=== PATIENT | female | born 1990 | race Caucasian/White ===

== ENCOUNTER → 2023-11-29 | Outpatient (CLI) | payer OTHER, SELFPAY ==
[2023-11-29 14:31] LABS: hCG Titer Quant., Serum 2 mIU/mL (1-3)
== END | disposition home or self-care (01) ==
PROVIDERS: Referring Provider Obstetrics & Gynecology; Visit Provider Obstetrics & Gynecology
DX: O26.859 Spotting complicating pregnancy, unspecified trimester (principal); Z3A.00 Weeks of gestation of pregnancy not specified
CPT/HCPCS: 36415; 84702

== ENCOUNTER → 2024-01-06 | Outpatient (CLI) | payer OTHER, SELFPAY ==
[2024-01-06 12:13] LABS: hCG Titer Quant., Serum 27649 mIU/mL (1-3)
== END | disposition home or self-care (01) ==
PROVIDERS: Obstetrics & Gynecology; Referring Provider Advanced Practice Midwife; Visit Provider Advanced Practice Midwife
DX: N91.2 Amenorrhea, unspecified (principal)
CPT/HCPCS: 36415; 84702

== ENCOUNTER → 2024-01-11 | Outpatient (CLI) | payer OTHER, SELFPAY ==
--- NOTE | 2024-01-11 11:03 | US_ITS ---
ACR Level 3 findings have been noted. An addendum which confirms receipt of the report will follow. EXAM: US , TRANSVAGINAL CLINICAL INDICATION: dating TECHNIQUE: Real-time transvaginal obstetrical ultrasound of the maternal pelvis and a first trimester with image documentation. Transvaginal imaging was used for better evaluation of the fetus and adnexa. COMPARISON: No relevant prior studies available. FINDINGS: GESTATION: Single viable IUP. Banquete-rump length: 0.9 cm (7 weeks, 0 days). heart rate: 146 bpm. Heterogenous predominantly hypoechoic perigestational collection measuring 1.3 x 1.9 x 1.2 cm. PLACENTA/AMNIOTIC FLUID: Cannot be adequately evaluated due to the early gestational age. UTERUS/CERVIX: The cervix is closed. No myometrial mass. The uterus measures 9.8 x 5.2 x 4.6 cm. OVARIES: There are 2 simple right ovarian cysts measuring 3.0 and 5.1 cm. No solid mass. The right ovary measures 5.7 x 7.7 x 2.9 cm. The left ovary measures 2.0 x 1.6 x 1.5 cm. FREE FLUID: No free fluid. US/Transvaginal w/Preg US IMPRESSION: 1. Single viable IUP. Apparent subchorionic hematoma. Follow-up as clinically indicated. 7 weeks, 0 days by size. 2. There are 2 simple right ovarian cysts measuring 3.0 and 5.1 cm. SRU Consensus Conference guidelines (Rojo, et. al. Radiology 2019;293:359-371) suggest that these simple cysts are almost certainly benign. No follow-up imaging is necessary. Electronically Signed: Efra Mancilla DO at 20:43 EDT ,
== END | disposition home or self-care (01) ==
PROVIDERS: Referring Provider Obstetrics & Gynecology; Visit Provider Obstetrics & Gynecology
DX: O09.291 Supervision of pregnancy with other poor reproductive or obstetric history, first trimester (principal); N91.2 Amenorrhea, unspecified; Z3A.00 Weeks of gestation of pregnancy not specified
CPT/HCPCS: 76817

== ENCOUNTER → 2024-01-21 | Outpatient (CLI) | payer OTHER, SELFPAY ==
[2024-01-24 20:07] LABS: Chlamydia By Nucleic Acid AMP Positive (Negative); Gonococcus By Nucleic Acid AMP Negative (Negative)
[2024-01-26 15:09] LABS: HPV APTIMA, High Risk Negative (Negative)
== END | disposition home or self-care (01) ==
LOC: LABSPEC 16:52
PROVIDERS: Referring Provider Obstetrics & Gynecology; Visit Provider Obstetrics & Gynecology
DX: Z34.90 Encounter for supervision of normal pregnancy, unspecified, unspecified trimester (principal)
CPT/HCPCS: 87086; 87491; 87591; 87624; 88175; G0145

== ENCOUNTER → 2024-02-03 | Outpatient (CLI) | payer OTHER, SELFPAY ==
[2024-02-03 12:43] LABS: Absolute Lymphocyte Count 1.86 X10^3/uL (0.83-4.51); Absolute Neutrophil Count 6.8 X10^3/uL (2.0-7.7); Basophil# 0.06 X10^3/uL; Basophil% 0.6 % (0-1); Eosinophil# 0.21 X10^3/uL; Eosinophils% 2.2 % (0-5); Hematocrit 40.1 % (37-47); Hemoglobin 13.2 g/dL (12.0-15.0); Lymphocyte # 1.86 X10^3/ul (0.83-4.51); Lymphocyte % 19.6 % (19-41); Mean Corp Hgb Conc 32.9 g/dL (32-36); Mean Corpuscular Hgb 30.5 pg (27.0-32.0); Mean Corpuscular Volume 92.6 fL (81-99); Mean Platelet Vol. 9.8 fl (6.2-12.0); Monocyte# 0.47 X10^3/uL; NRBC Flagged by Analyzer 0 % (0-5); Neutrophil # 6.84 X10^3/uL (2.7-7.7); Neutrophil % 72.2 % (47-70); Platelet Count 317 K/mm3 (150-450); RBC Distribution Width CV 11.9 % (11.6-14.6); RBC Distribution Width SD 40.4 fl (35.1-43.9); Red Blood Count 4.33 M/mm3 (4.2-5.4); White Blood Count 9.5 K/mm3 (4.4-11.0)
[2024-02-03 13:29] LABS: HIV - WCH Non-Reactive (Nonreactive); Hepatitis B Surface Antigen Non-Reactive (Nonreactive); Hepatitis C Antibody Non-Reactive (Nonreactive); Rubella IgG Reactive (Nonreactive); Syphilis Antibodies Non-reactive
== END | disposition home or self-care (01) ==
PROVIDERS: Referring Provider Obstetrics & Gynecology; Visit Provider Obstetrics & Gynecology
DX: Z34.90 Encounter for supervision of normal pregnancy, unspecified, unspecified trimester (principal)
CPT/HCPCS: 36415; 85025; 86703; 86762; 86780; 86803; 86850; 86900; 86901; 87340

== ENCOUNTER → 2024-02-18 | Outpatient (CLI) | payer OTHER, SELFPAY | END | disposition home or self-care (01) | LOC: LABSPEC 14:53 | PROVIDERS: Referring Provider Advanced Practice Midwife; Visit Provider Advanced Practice Midwife | DX: O98.819 Other maternal infectious and parasitic diseases complicating pregnancy, unspecified trimester (principal); A74.9 Chlamydial infection, unspecified; Z3A.00 Weeks of gestation of pregnancy not specified | CPT/HCPCS: 87491; 87591 ==

== ENCOUNTER → 2024-06-09 | Outpatient (CLI) | payer OTHER, SELFPAY ==
[2024-06-09 12:49] LABS: Absolute Lymphocyte Count 2.07 X10^3/uL (0.83-4.51); Absolute Neutrophil Count 7.5 X10^3/uL (2.0-7.7); Basophil# 0.05 X10^3/uL; Basophil% 0.5 % (0-1); Eosinophil# 0.21 X10^3/uL; Hematocrit 36.1 % (37-47); Hemoglobin 11.9 g/dL (12.0-15.0); Lymphocyte # 2.07 X10^3/ul (0.83-4.51); Lymphocyte % 19.6 % (19-41); Mean Corpuscular Hgb 31.6 pg (27.0-32.0); Mean Corpuscular Volume 95.8 fL (81-99); Monocyte# 0.58 X10^3/uL; Monocyte% 5.5 % (0-10); NRBC Flagged by Analyzer 0 % (0-5); Neutrophil % 70.8 % (47-70); Platelet Count 287 K/mm3 (150-450); RBC Distribution Width SD 45.4 fl (35.1-43.9); Red Blood Count 3.77 M/mm3 (4.2-5.4); White Blood Count 10.6 K/mm3 (4.4-11.0)
[2024-06-09 13:03] LABS: Glucose Challenge Gest 1H 50g 128 mg/dL (70-140)
[2024-06-09 13:26] LABS: HIV - WCH Non-Reactive (Nonreactive); Syphilis Antibodies Non-reactive
== END | disposition home or self-care (01) ==
LOC: BWCLAB 08:41
PROVIDERS: Referring Provider Advanced Practice Midwife; Visit Provider Advanced Practice Midwife
DX: O09.90 Supervision of high risk pregnancy, unspecified, unspecified trimester (principal); Z3A.00 Weeks of gestation of pregnancy not specified; Z13.1 Encounter for screening for diabetes mellitus
CPT/HCPCS: 36415; 82950; 85025; 86703; 86780

== ENCOUNTER → 2024-08-04 | Outpatient (CLI) | payer OTHER, SELFPAY ==
[2024-08-04 20:47] LABS: Protein, Urine (Random) < 6.0 mg/dL (0.0-12.0); Protein:Creat Ratio UNABLE TO CALCULATE mg/g CRE (0-200)
== END | disposition home or self-care (01) ==
PROVIDERS: Referring Provider Registered Nurse; Visit Provider Registered Nurse
DX: Z34.93 Encounter for supervision of normal pregnancy, unspecified, third trimester (principal)
CPT/HCPCS: 82570; 84156; 87081

== ENCOUNTER 2024-08-09 19:04 | Inpatient (IN) | payer OTHER, SELFPAY ==
[2024-08-09] VITALS (15 sets, daily range): BP systolic 130–160; BP diastolic 67–94; PULSE 80–108; RESP 16; TEMP 36.1–37.2; O2SAT 98; BMI 29.7
--- NOTE | 2024-08-09 08:01 | US_ITS ---
PROCEDURE: OB LIMITED (NO BIOMETRICS) REASON FOR EXAM: Assessment for presentation. COMPARISON: None. FINDINGS Number: 1 Position: Breech Placental Position: Fundal Placental Abnormalities: None. BIOPHYSICAL ASSESSMENT: Amniotic Fluid Volume: Subjectively normal. Amniotic Fluid Index: 9.3 (8-24 cm normal range) Cardiac Motion: 137 beats per minute (average) Trunk and Limb Motion: Present. US/OB Limited (No Biometrics) IMPRESSION: Breech presentation. Reading Location: [id number]
[2024-08-09] MEDS: Lactated Ringers 1,000 ML 125 ML IV (13:25)
[2024-08-09] MEDS: Terbutaline 1 MG/ML Vial 0.25 MG SC (13:56)
--- NOTE | 2024-08-09 14:54 | US_ITS ---
PROCEDURE: BIOPHYSICAL PROF W/O NON STRES REASON FOR EXAM: well-being. TECHNIQUE: Biophysical profile. COMPARISON: None. FINDINGS: position: Cephalic Amniotic fluid: Within normal limits. Largest fluid pocket measures 4.5 cm. Amniotic fluid index measures 12.4 cm. The placenta is fundal in position. Biophysical profile: Breathing movements: 2 Gross body movements: 2 tone: 2 Amniotic fluid volume: 2 Total score: 8/8 US/Biophysical Prof W/O Non Stres IMPRESSION: Normal biophysical profile. Reading Location: [id number]
[2024-08-09 17:58] LABS: Hematocrit 36.7 % (37-47); Hemoglobin 12.1 g/dL (12.0-15.0); Mean Corpuscular Hgb 30.3 pg (27.0-32.0); Mean Platelet Vol. 11.1 fl (6.2-12.0); Platelet Count 304 K/mm3 (150-450); RBC Distribution Width CV 13.4 % (11.6-14.6); RBC Distribution Width SD 45.6 fl (35.1-43.9); Red Blood Count 3.99 M/mm3 (4.2-5.4); White Blood Count 11.6 K/mm3 (4.4-11.0)
[2024-08-09 18:55] LABS: Protein, Urine (Random) 14.1 mg/dL (0.0-12.0); Protein:Creat Ratio 123 mg/g CRE (0-200)
[2024-08-09 19:08] LABS: AST(SGOT) 55 U/L (<=31); Alanine Aminotransfer ALT/SGPT 72 U/L (<=34); Creatinine, Serum 0.57 mg/dL (0.70-1.20); EST Glomerular Filtration Rate 123 (>60)
[2024-08-09 20:03] LABS: Uric Acid 5.1 mg/dL (2.6-6.0)
[2024-08-09 20:25] LABS: Syphilis Antibodies Nonreactive (Nonreactive)
--- NOTE | 2024-08-09 21:09 | HP.PCM.OB_ITS ---
HPI - General General Date of Admission: 08/09/24 HPI Narrative STEFANIA SANTIAGO, is a 34 F who presents for IOL secondary to severe gestational hypertension. she underwent a successful version today. Maternal Data Information WILY Calculator Estimated Delivery Date Method Current WG Current Estimate 08/30/24 Ultrasound #1 37w 0d PFSH PFS Medical History (Updated 08/09/24 @ 21:[address] 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 [employer] current occupational exposures/hazards: No pets and animals: No history of recent travel: No sexually active: Yes Smoking Status: Never smoker alcohol intake: current alcohol intake frequency: holidays/special occasions only details: not while substance use type: does not use well-balanced diet: daily or most days caffeine: Yes eating out: 1-3 times/week during the past year weight has: remained stable what type of physical activity do you participate in: yoga frequency: 1-2 times per week duration: 15-30 minutes/day katlin/faith: Mandaeism seatbelt use: always do you feel safe at home: Yes additional social history: : Zana Seymour ([employer]) - [employer] History 2 Elective abortions Hx Para 0 Spontaneous abortions 1 Hx # Term Pregnancies Ectopic pregnancies Hx # Pregnancies Multiple births # of living children 0 Past Pregnancies Del. Date Name GA/Weeks Outcome Route Bth Weight Infant Gen Labor Lgth Anesthesia Del Locatn Provider FOB 11/24/23 4 spontaneous Visit Details Expected Delivery Route/Plan Labor Preferences- CB/BF classes: enc. labor support person: Lion labor intervention preferences: would like low intervention. pain management options preferred: [] cut cord/dad catch:plan on cutting the cord : plans. PP control planned: [] discussed possible routes of delivery and associated risks: [] special requests: [] Plans Covid status: declined. Flu vaccine: declined Tdap vaccine: obtained. Rhogam: na LARC form signed: completed. Problem list reviewed and updated with the most current plan of care details and appropriate orders placed. Relevant counseling for the gestational age provided. Continue routine care and follow up unless otherwise noted in visit notes/problem list details OB Flowsheet Initial Weight: 143 lb Date -?-?-?-?-?-?-?-?-?-?-?-?- EGA Weight BP Urine Prot -?-?-?-?-?-?-?-?-?-?-?-?- Glucose FHR FuHt Pres Dilation -?-?-?-?-?-?-?-?-?-?-?-?- Effaced St Visit Note 01/21/24 -?-?-?-?-?-?-?-?-?-?-?-?- 8w 2d 143 lb 6 oz (+6 oz) 130/92 -?-?-?-?-?-?--?-?-?-?-?-?- 158 -?-?-?-?-?-?-?-?-?-?-?-?- JV- CRL consiste nt with prior ultrasound (last week) uncertain about nipt or carrier testing. wants to think about this. small LYN still present. 02/18/24 -?-?-?-?-?-?-?-?-?-?-?-?- 12w 2d 140 lb 8 oz (-2 lb 8 oz) 149/80 130/84 Negative -?-?-?-?-?-?-?-?-?-?-?-?- Negative 160 -?-?-?-?-?-?-?-?-?-?-?-?- KW- work in for SM. no vb/cramping. gcc recollected today. anatomy US ordered 03/17/24 -?-?-?-?-?-?--?-?-?-?-?-?- 16w 2d 141 lb 2 oz (-1 lb 14 oz) 127/86 Negative -?-?-?-?-?-?-?-?-?-?-?-?- Negative 145 -?-?-?-?-?-?-?-?-?-?-?-?- JV- gc/ct was ne gative in the urine JV- gc/ct was negative in th e urine. no complaints. low risk nipt Girl! 04/13/24 -?-?-?-?-?-?-?-?-?-?-?-?- 20w 1d 147 lb (+4 lb) 126/75 Negative -?-?-?-?-?-?-?-?-?-?-?-?- Negative 150 -?-?-?-?-?-?-?-?-?-?-?-?- SM- no vb lof go od fm no regular ctx 05/11/24 -?-?-?-?-?-?-?-?-?-?-?-?- 24w 1d 153 lb (+10 lb) 131/72 Negative -?-?-?-?-?-?-?-?-?-?-?-?- Negative 145 24 -?-?-?-?-?-?-?-?-?-?-?-?- KW- no vb/lof/ct x. good fm 28 week labs discussed. 2024 CBE classes given. declines flu. LARC done. 06/09/24 -?-?-?-?-?-?-?-?-?-?-?-?- 28w 2d 156 lb 8 oz (+13 lb 8 oz) 127/72 Negative -?-?-?-?-?-?-?-?-?-?-?-?- Negative 150 27 -?-?-?-?-?-?-?-?-?-?-?-?- KW- no vb/lof/ct x. good fm. glucose pending. tdap done. 06/23/24 -?-?-?-?-?-?-?-?-?-?-?-?- 30w 2d 160 lb (+17 lb) 134/82 Negative -?-?-?-?-?-?-?-?--?-?-?-?- Negative 135 30 -?-?-?-?-?-?-?-?-?-?-?-?- LC- no vb/ctx/lo f. good fm. no concerns. 07/07/24 -?-?-?-?-?-?-?-?-?-?-?-?- 32w 2d 165 lb (+22 lb) 137/80 Negative -?-?-?-?-?-?-?-?-?-?-?-?- Negative 160 32 -?-?-?-?-?-?-?-?-?-?-?-?- JV- no lof, vagi nal bleeding, or dec fm. still deciding on a name. 07/20/24 -?-?-?-?-?-?-?-?-?-?-?-?- 34w 1d 166 lb 8 oz (+23 lb 8 oz) 136/88 Negative -?-?-?-?--?-?-?-?-?-?-?-?- Negative 136 33 Transverse -?-?-?-?-?-?-?-?-?-?-?-?- JV- no lof, vagi nal bleeding, or dec fm. no complaints today. uncertain on position. suspect transverse plan bedside scan next visit. 08/04/24 -?-?-?-?-?-?-?-?-?-?-?-?- 36w 2d 175 lb 6 oz (+32 lb 6 oz) 135/90 138/86 Negative -?-?-?-?-?-?-?-?-?-?-?-?- Negative 140 36 Breech -?-?-?-?-?-?-?-?-?-?-?-?- LC- bedside us s howing breech. version set up for next week. formal us for gali. pih labs outpt. NST FHR Rate Baby A Baseline: 130 Variability:: Moderate Accelerations:: 15 x 15 Decelerations:: Variable (isolated) NST Reactive:: Yes FHR Category:: Category I Uterine Activity:: irregular ROS Constitutional Constitutional: Reports systems reviewed and no addt'l complaints, except as documented Eyes Eyes: Denies change in vision ENT HEENT: Reports systems reviewed and no addt'l complaints, except as documented; Denies headache(s) Cardiovascular Cardiovascular: Reports systems reviewed and no addt'l complaints, except as documented; Denies chest pain or dyspnea Respiratory/Chest Respiratory/Chest: Reports systems reviewed and no addt'l complaints, except as documented Gastrointestinal Gastrointestinal: Reports systems reviewed and no addt'l complaints, except as documented; Denies abdominal pain Genitourinary Genitourinary: Reports systems reviewed and no addt'l complaints, except as documented, contractions Details: present (irregular) and movement Details: present; Denies dysuria or genital lesions Musculoskeletal Musculoskeletal: Reports systems reviewed and no addt'l complaints, except as documented Neurologic Neurologic: Reports systems reviewed and no addt'l complaints, except as documented Endocrine Endocrinology: Reports systems reviewed and no addt'l complaints, except as documented Vital Signs Vital Signs Vital Signs: 08/09/24 13:16 08/09/24 13:16 08/09/24 13:16 Temperature 97.0 F L Temperature Source Temporal Pulse Rate Respiratory Rate 16 Blood Pressure BP Systolic BP Diastolic Pulse Ox 08/09/24 13:20 08/09/24 13:20 08/09/24 16:52 Temperature Temperature Source Pulse Rate 80 Respiratory Rate Blood Pressure 130/71 H 160/83 H BP Systolic 130 160 BP Diastolic 71 83 Pulse Ox 08/09/24 16:52 08/09/24 16:53 08/09/24 16:53 Temperature Temperature Source Pulse Rate 84 84 Respiratory Rate Blood Pressure 155/82 H BP Systolic 155 BP Diastolic 82 Pulse Ox 08/09/24 17:09 08/09/24 17:09 08/09/24 18:11 Temperature Temperature Source Pulse Rate 98 Respiratory Rate Blood Pressure 148/80 H 148/80 H BP Systolic 148 148 BP Diastolic 80 80 Pulse Ox 08/09/24 18:11 08/09/24 18:25 08/09/24 18:25 Temperature Temperature Source Pulse Rate 86 87 Respiratory Rate Blood Pressure 145/82 H BP Systolic 145 BP Diastolic 82 Pulse Ox 08/09/24 18:39 08/09/24 18:39 08/09/24 18:54 Temperature Temperature Source Pulse Rate 90 Respiratory Rate Blood Pressure 149/94 H 150/84 H BP Systolic 149 150 BP Diastolic 94 84 Pulse Ox 08/09/24 18:54 08/09/24 18:57 08/09/24 18:57 Temperature Temperature Source Pulse Rate 88 96 Respiratory Rate Blood Pressure 149/76 H BP Systolic 149 BP Diastolic 76 Pulse Ox 08/09/24 19:09 08/09/24 19:09 08/09/24 20:24 Temperature Temperature Source Temporal Pulse Rate 108 H Respiratory Rate Blood Pressure 145/67 H BP Systolic 145 BP Diastolic 67 Pulse Ox 08/09/24 20:24 08/09/24 20:24 08/09/24 20:24 Temperature Temperature Source Pulse Rate 107 H Respiratory Rate 16 Blood Pressure 138/84 H BP Systolic 138 BP Diastolic 84 Pulse Ox 08/09/24 20:24 08/09/24 20:24 Temperature 98.3 F Temperature Source Pulse Rate Respiratory Rate Blood Pressure BP Systolic BP Diastolic Pulse Ox 98 Weight Weight: 173 lb 8.061 oz Body Mass Index (BMI) 29.7 Physical Exam Const alert, oriented x3, no apparent distress and healthy appearing HEENT normocephalic and moist oral mucous membranes Head and Scalp: atraumatic Neck full ROM, no lymphadenopathy, supple and thyroid normal General: trachea midline Lymph Lymphatic: no lymphadenopathy noted Chest inspection of chest normal Resp normal respiratory effort Cardio regular rate GI soft to palpation and non-tender GI Narrative: gravid Inspection: gravid external exam normal Manual OB Exam: estimated gestational size appropriate, presentation cephalic, dilated, effaced and station Extremity normal to inspection General Extremity: Negative for edema Skin no rashes or lesions noted Neuro no focal motor deficits and deep tendon reflexes 2+ bilaterally Motor Exam: strength 5/5 throughout and clonus absent Psych mental status grossly normal Labs Labs Labs: Blood Type O POSITIVE Antibody Screen NEGATIVE Hct 36.7 % (37-47) L Hgb 12.1 g/dL (12.0-15.0) Obstetrics Ultrasound Syphilis Total Ab Nonreactive (Nonreactive) Rubella IgG Antibody Reactive (Nonreactive) Hep Bs Antigen Non-Reactive (Nonreactive) Hepatitis C Antibody Non-Reactive (Nonreactive) Chlamydia DNA (MEHUL) Positive (Negative) H N.gonorrhoeae DNA (MEHUL) Negative (Negative) HIV 1&2 Antibody Non-Reactive (Nonreactive) Glucose 1 Hr 50 gm 128 mg/dL (70-140) Assessment & Plan (1) Gestational HTN: (2) Chlamydia infection affecting : COMMENT: retest at 2nd visit (negative) and at 36 weeks (3) Supervision of high-risk : COMMENT: PRR,, WILY 08/30/24 girl : Lion (4) : QUALIFIERS: Weeks of gestation: 36 weeks Qualified Code(s): Z3A.36 - 36 weeks gestation of COMMENT: GBS NEG. Discussed genetic/carrier testing. low risk NIPT, afp and carrier screen declined. normal growth, consistent WILY and normal CL PLAN: Plan Patient presents IOL, plan management for with cytotec then pitocin/AROM. Pain management: plans epidural. GBS negative. Management of any complications: follow serial labs, plan magnesium sulfate as needed I have reviewed the [facility] and made any clinically relevant updates.
--- NOTE | 2024-08-09 21:13 | PCM.OPRPT ---
Problems Associated Problem List Diagnoses (1) Breech presentation: Procedures Urinary/Genital 52xxx-59xxx: 83913 ECV Operative Report (Standard) Operative Information Date of Procedure: 08/09/24 Pre-Operative Diagnosis: breech Post-Operative Diagnosis: vertex Surgery/Procedure Performed: external cephalic version motor vehicles inspector: No Type of Anesthesia: None Procedure Start Time: 14:00 Procedure Stop Time: 14:15 Select all DRAINS/GRAFTS/IMPLANTS that apply: None Estimated Blood Loss: 0 Specimen collected: No Description of surgery: The fetus was found to be in breech presentation informed by ultrasound. Patient had an IV in place, normal amniotic fluid, no contraindications to a vaginal delivery, and reactive nonstress test prior to the procedure. Patient was placed in the dorsal supine position after the terbutaline was given. Ultrasound gel was applied to the patient's abdomen and using constant upward pressure to elevate the buttocks out of the pelvic inlet constant pressure was applied to the buttocks and to the area behind the back of the neck and head to encourage a forward roll of the fetus. Constant pressure was applied and slowly the was converted to a vertex presentation with a forward roll. Bedside ultrasound was used to confirm vertex presentation and reassuring heart rate. Patient was replaced on the NST and monitored to assure reassuring status. No complications. Surgical Findings: none Complications Complications: No
[2024-08-09] MEDS: Lactated Ringers 1,000 ML 50 ML IV (21:36)
[2024-08-09] MEDS: miSOPROStol 25 MCG TABLET VAGINAL (22:07)
[2024-08-10] VITALS (28 sets, daily range): BP systolic 101–167; BP diastolic 72–103; PULSE 74–114; RESP 10–20; TEMP 36.1–37.1; O2SAT 95–100
[2024-08-10 00:23] LABS: Absolute Lymphocyte Count 2.16 X10^3/uL (0.83-4.51); Absolute Neutrophil Count 8.1 X10^3/uL (2.0-7.7); Basophil# 0.06 X10^3/uL; Basophil% 0.5 % (0-1); Eosinophil# 0.12 X10^3/uL; Hematocrit 30.2 % (37-47); Hemoglobin 10.1 g/dL (12.0-15.0); Lymphocyte # 2.16 X10^3/ul (0.83-4.51); Lymphocyte % 18.8 % (19-41); Mean Corp Hgb Conc 33.4 g/dL (32-36); Mean Corpuscular Hgb 30.1 pg (27.0-32.0); Mean Corpuscular Volume 90.1 fL (81-99); Mean Platelet Vol. 10.5 fl (6.2-12.0); Monocyte# 0.91 X10^3/uL; Monocyte% 7.9 % (0-10); NRBC Flagged by Analyzer 0 % (0-5); Neutrophil % 70.3 % (47-70); Platelet Count 268 K/mm3 (150-450); RBC Distribution Width CV 13.5 % (11.6-14.6); RBC Distribution Width SD 44.4 fl (35.1-43.9); Red Blood Count 3.35 M/mm3 (4.2-5.4); White Blood Count 11.5 K/mm3 (4.4-11.0)
[2024-08-10 00:51] LABS: ALB/GLOB Ratio 1.2 RATIO (0.9-2.4); AST(SGOT) 51 U/L (<=31); Alanine Aminotransfer ALT/SGPT 66 U/L (<=34); Albumin, Serum 3.5 g/dL (3.5-5.0); Alkaline Phosphatase 114 U/L (35-104); Anion Gap 14 (5-15); BUN 7 mg/dL (4-19); BUN/Creat Ratio 12.4 RATIO (10-20); Calcium,Total 8.8 mg/dL (7.6-11.0); Carbon Dioxide 17.8 mmol/L (21.0-32.0); Chloride 105 mmol/L (98-108); Creatinine, Serum 0.57 mg/dL (0.70-1.20); EST Glomerular Filtration Rate 123 (>60); Globulin 2.9 g/dL (2.2-4.2); Glucose 83 mg/dL (70-99); Potassium 3.7 mmol/L (3.3-5.1); Protein, Total 6.3 g/dL (5.9-8.4); Sodium Level 137 mmol/L (133-145); Total Bilirubin 0.23 mg/dL (0.00-1.30)
[2024-08-10] MEDS: miSOPROStol 25 MCG TABLET VAGINAL ×2 (02:58→07:43)
[2024-08-10 08:21] LABS: Absolute Lymphocyte Count 2.09 X10^3/uL (0.83-4.51); Absolute Neutrophil Count 8.8 X10^3/uL (2.0-7.7); Basophil# 0.06 X10^3/uL; Basophil% 0.5 % (0-1); Eosinophil# 0.22 X10^3/uL; Eosinophils% 1.8 % (0-5); Hematocrit 31.4 % (37-47); Hemoglobin 10.4 g/dL (12.0-15.0); Lymphocyte # 2.09 X10^3/ul (0.83-4.51); Mean Corp Hgb Conc 33.1 g/dL (32-36); Mean Corpuscular Hgb 29.8 pg (27.0-32.0); Mean Platelet Vol. 10.6 fl (6.2-12.0); Monocyte% 8.1 % (0-10); NRBC Flagged by Analyzer 0 % (0-5); Neutrophil # 8.81 X10^3/uL (2.7-7.7); Neutrophil % 71.7 % (47-70); Platelet Count 267 K/mm3 (150-450); RBC Distribution Width CV 13.6 % (11.6-14.6); Red Blood Count 3.49 M/mm3 (4.2-5.4); White Blood Count 12.3 K/mm3 (4.4-11.0)
[2024-08-10] MEDS: Lactated Ringers 1,000 ML 50 ML IV (08:52)
[2024-08-10 09:08] LABS: ALB/GLOB Ratio 1.2 RATIO (0.9-2.4); AST(SGOT) 48 U/L (<=31); Alanine Aminotransfer ALT/SGPT 64 U/L (<=34); Albumin, Serum 3.3 g/dL (3.5-5.0); Alkaline Phosphatase 113 U/L (35-104); Anion Gap 13 (5-15); BUN 7 mg/dL (4-19); BUN/Creat Ratio 12.6 RATIO (10-20); Calcium,Total 8.7 mg/dL (7.6-11.0); Carbon Dioxide 17.9 mmol/L (21.0-32.0); Chloride 106 mmol/L (98-108); Creatinine, Serum 0.59 mg/dL (0.70-1.20); EST Glomerular Filtration Rate 122 (>60); Estimated Creatinine Clearance 137.67 ml/min (50-250); Globulin 2.8 g/dL (2.2-4.2); Glucose 76 mg/dL (70-99); Potassium 3.9 mmol/L (3.3-5.1); Protein, Total 6.2 g/dL (5.9-8.4); Sodium Level 137 mmol/L (133-145); Total Bilirubin 0.24 mg/dL (0.00-1.30)
--- NOTE | 2024-08-10 11:02 | PCM.PN.BLA ---
Progress Note Cat I tracing, cytotec continue plan pit and fb after this dose. liver enzymes and bps stable. continue to monitor
[2024-08-10] MEDS: Oxytocin 15 Units/NS 250ml 15 UNITS/250 ML IV.SOLN 2 UNITS IV (12:55)
[2024-08-10] MEDS: 0.9% Saline Lock 10 ML Syringe IV (13:03)
--- NOTE | 2024-08-10 13:07 | PCM.PN.OB ---
Subjective Subjective patient is sitting up in bed. She consents to a james balloon placement. current tracing: FHT: Moderate variability reactive no decelerations category I tracing [place]: irregualr, infrequent Contractions cx: 1/40/-3, soft, posterior. james inserted in the cervix and inflated with 50 cc ns. A/P: patient tolerated the insertion well. start pitocin now. pain management discussed. Objective Data Objective Data Vital Signs: Vital Signs Temp Pulse Resp BP Pulse Ox 98.3 F 80 16 166/94 H 98 08/10/24 09:17 08/10/24 13:06 08/10/24 06:04 08/10/24 13:06 08/10/24 09:18 Weight: 173 lb 8.061 oz Body Mass Index (BMI) 29.7 Intake & Output: Intake and Output for Last 24 Hours 08/08/24 08/09/24 08/10/24 23:59 23:59 23:59 Intake Total 1000 / 1000 1000.0 / 1000.0 Balance 1000 / 1000 1000.0 / 1000.0 Lab / Micro Data 08/10/24 08:03 08/10/24 08:03 Labs: Laboratory Results - last 24 hr 08/09/24 13:25: WBC 11.6 H, RBC 3.99 L, Hgb 12.1, Hct 36.7 L, MCV 92.0, MCH 30.3, MCHC 33.0, RDW Std Deviation 45.6 H, RDW Coeff of Morris 13.4, Plt Count 304, MPV 11.1, Syphilis Total Ab Nonreactive, Blood Type O POSITIVE, Antibody Screen NEGATIVE 08/09/24 17:30: Creatinine 0.57 L, Estim Creat Clear Calc 142.50, Est GFR (MDRD) Non-Af 123, Uric Acid 5.1, AST 55 H, ALT 72 H 08/09/24 17:35: U Random Total Protein 14.1 H, Urine Creatinine 115.00, Protein/Creatinin Ratio 123 08/10/24 00:07: WBC 11.5 H, RBC 3.35 L, Hgb 10.1 L, Hct 30.2 L, MCV 90.1, MCH 30.1, MCHC 33.4, RDW Std Deviation 44.4 H, RDW Coeff of Morris 13.5, Plt Count 268, MPV 10.5, Immature Gran % (Auto) 1.500 H, Neut % (Auto) 70.3 H, Lymph % (Auto) 18.8 L, [place] % (Auto) 7.9, Eos % (Auto) 1.0, Baso % (Auto) 0.5, Absolute Neuts (auto) 8.1 H, Absolute Lymphs (auto) 2.16, Nucleated RBC % 0, Sodium 137, Potassium 3.7, Chloride 105, Carbon Dioxide 17.8 L, Anion Gap 14, BUN 7, Creatinine 0.57 L, Estim Creat Clear Calc 142.50, Est GFR (MDRD) Non-Af 123, BUN/Creatinine Ratio 12.4, Glucose 83, Calcium 8.8, Total Bilirubin 0.23, AST 51 H, ALT 66 H, Alkaline Phosphatase 114 H, Total Protein 6.3, Albumin 3.5, Globulin 2.9, Albumin/Globulin Ratio 1.2 08/10/24 08:03: WBC 12.3 H, RBC 3.49 L, Hgb 10.4 L, Hct 31.4 L, MCV 90.0, MCH 29.8, MCHC 33.1, RDW Std Deviation 44.0 H, RDW Coeff of [place] 13.6, Plt Count 267, MPV 10.6, Immature Gran % (Auto) 0.900, Neut % (Auto) 71.7 H, Lymph % (Auto) 17.0 L, [place] % (Auto) 8.1, Eos % (Auto) 1.8, Baso % (Auto) 0.5, Absolute Neuts (auto) 8.8 H, Absolute Lymphs (auto) 2.09, Nucleated RBC % 0, Sodium 137, Potassium 3.9, Chloride 106, Carbon Dioxide 17.9 L, Anion Gap 13, BUN 7, Creatinine 0.59 L, Estim Creat Clear Calc 137.67, Est GFR (MDRD) Non-Af 122, BUN/Creatinine Ratio 12.6, Glucose 76, Calcium 8.7, Total Bilirubin 0.24, AST 48 H, ALT 64 H, Alkaline Phosphatase 113 H, Total Protein 6.2, Albumin 3.3 L, Globulin 2.8, Albumin/Globulin Ratio 1.2 Radiography Diagnostic Testing: Radiology Impression Biophysical Profile Ultrasound 08/09/24 14:54 IMPRESSION: Normal biophysical profile. Reading Location: [id number]
[2024-08-10] MEDS: fentaNYL 100 MCG/2 ML Ampul IV (14:10)
[2024-08-10] MEDS: LACTATED RINGERS 500 ML 999 ML IV (15:58)
[2024-08-10] MEDS: Cefazolin 2 GM in Syringe IV (16:55)
[2024-08-10] MEDS: Cefazolin 2 GM in 0.9% Normal Saline (100mL Bag) 100 ML IV (16:55)
[2024-08-10] MEDS: Carboprost Tromethamine 250 MCG/ML Ampul IM (16:56)
[2024-08-10] MEDS: Azithromycin 500 MG in 0.9% Normal Saline (250mL Bag) 250 ML 255 MG IV (17:00)
--- NOTE | 2024-08-10 17:46 | PCM.PN.BLA ---
Progress Note fb out several hours ago and patient SROMed clear fluid, 2 variable decels noted so patient checked and decision for stat section due to cord prolapse identified
--- NOTE | 2024-08-10 17:47 | OP.PCM_ITS ---
Assessment & Plan (1) Umbilical cord prolapse in labor and delivery: (2) : QUALIFIERS: Weeks of gestation: 36 weeks Qualified Code(s): Z3A.36 - 36 weeks gestation of COMMENT: GBS NEG. Discussed genetic/carrier testing. low risk NIPT, afp and carrier screen declined. normal growth, consistent WILY and normal CL (3) Supervision of high-risk : COMMENT: PRR,, WILY 08/30/24 girl : Lion (4) Chlamydia infection affecting : COMMENT: retest at 2nd visit (negative) and at 36 weeks (5) Gestational HTN: COMMENT: no proteinuria but elevated liver enzymes noted (6) delivery delivered: COMMENT: LTCS SM 37 cord prolapse IOL severe GHTN elevated liver enzymes girl Isela Maternal Data Information WILY Calculator Estimated Delivery Date Method Current WG Current Estimate 08/30/24 Ultrasound #1 37w 1d Operative Report (OB) Cecarean Details Procedure Type: low transverse Date of Procedure: 08/10/24 Procedure Start Time: 16:50 Procedure Stop Time: 17:19 Pre-Operative Diagnosis: Other Other Pre-Operative diagnosis: see a/p comments Post-Operative Diagnosis: Same as Pre-operative diagnosis Type of Anesthesia: General Special Medications: none Antibiotic Given: Ancef 2 grams IV x1 Drain: De [place] Cruz to straight drain Estimated Blood Loss: 500 Fluids Replaced: crystalloid Findings Description of surgery: patient induced for severe GHTN with elevated liver enzymes and elevated bps. she was a successful ECV the day prior with ultrasound confirming vertex with nothing seen on ultrasound under the head after version. she underwent cytotec and then pit and fb IOL. she has spontaneous ROM and had 2 variable decels so she was checked and noted to have a cord prolapse therefore decision was made for immediate primary . ptaient take to the back, De La Cruz catheter was placed. The patient was placed in the dorsal supine position with leftward tilt. Patient was prepped and draped with splash betadine prep, placed under general anesthesia. Pfannenstiel skin incision was made with the scalpel and carried through to the underlying layer of fascia with the scalpel. Fascia was nicked in the midline and the incision extended laterally. The peritoneum was entered digitally. The incision was stretched and a low transverse uterine incision was made with the scalpel. The infant's head was delivered atraumatically followed by the anterior and posterior shoulders without complication the rest of the delivered. The cord was clamped and cut and the infant was handed off to awaiting nurse. The placenta was delivered spontaneously immediately following and was noted to be intact and have a three- vessel cord. The uterus was exteriorized cleared of all clots and debris, and the incision was closed in a single layer closure using #1 Monocryl. hemabate given for uterine atony. The ovaries and fallopian tubes were noted to be within normal limits. The uterus was returned to the maternal abdomen and gutters were cleared of all clots and debris. The peritoneum was closed with 3-0 Monocryl in a running fashion. Fascia was closed with 0 PDS in a running fashion. Subcutaneous tissue was copiously irrigated and the skin was closed with 3-0 Monocryl in a subcuticular fashion. Mepilex dressing was applied without complication. Patient was taken to recovery in stable condition. It was discussed with the patient that based on the clinical information obtained during this encounter, combined with her history, at this time I would recommend vaginal or cesareans for future deliveries if further pregnancies are desired. Surgical findings: nl uterus tubes ovaries funic presentation Presentation: Vertex Amniotic Membrane Rupture Type: Spontaneous Amniotic Fluid Description: Clear Placental Delivery Description: Spontaneous Specimen collected: Yes Description of specimen(s) removed: placenta and baby Cord Vessel Description: 3 Vessels (1 minute): 8 (5 minute): 9 Delayed Cord Clamping: No Ornament Stapler project production engineer: Yes Linux Network Systems Administrator: Yecenia Schmitz Tasks completed by blacksmith assistant: Opening & closing, Retracting and Other (assisting in delivery of the ) Additional physician office assistant?: No Complications Complications: No Admit VTE Documentation VTE Present on Admission: No VTE Mechan Device Prophylaxis: SCD's Procedures Urinary/Genital 52xxx-59xxx: [address] [facility]
--- NOTE | 2024-08-10 17:57 | DCINST_ITS ---
Discharge Instructions Diet Discharge Diet: No restrictions DC O2, CPAP, BIPAP needs Home O2 Discharge instructions: No Dressing / Incision Discharge Activity: May Not Drive (for 2 weeks or while taking narcotic pain medications.), May Shower and May Take a Tub Bath (in 7 days) May shower in (days): 0 May resume sexual activity in: 4-6 weeks Weight Bearing Status: Full weight bearing Lifting Restrictions: 20 pounds Dressing / Incision Call your doctor if your incision/area has: Continuous Slow Oozing, Sudden Increased Bleeding, Increased Pain/ Swelling, Increased Redness and Foul Smelling Discharge Call your doctor if you observe: Fever of 101 or Higher and Using more than 1 pad per hour (for 2 hours) Suture Line Care: Avoid Pulling/Pushing and Avoid Pinching/Bending Cleanse incision/area with: Soap & Water and Keep Dressing Clean & Dry Follow Up Care Please Follow Up With: Tatiana Michel MD When: Call [phone] to make an appointment for an incision check in 1-2 weeks. Test Results: Test results from this visit will be discussed in further detail at your follow- up appointment, if applicable. Discharge Plan Admission Admit Date/Time: 08/09/24 19:04 Attending Provider: Tatiana Michel Primary Care Provider: Care Physician,No Primary Instructions Patient Instructions: Kick Counts, ED False Labor, OB Triage: Return to Hospital or Notify Physician if you Experience: Discharge Orders/Prescriptions Prescriptions: New oxycodone-acetaminophen [Percocet] 5-325 mg tablet 1 tab PO Q4H PRN (Reason: pain) 7 Days Qty: 20 0RF naproxen 500 mg tablet 500 mg PO BID PRN PRN (Reason: Pain) Qty: 30 1RF No Action PNV cmb#95-ferrous fumarate-FA [] 28 mg iron- 800 mcg tablet 1 tab PO DAILY Referrals / Follow Up: Care Physician,No Primary [Primary Care Provider] - Disposition Disposition (needs filled in before D/C Order can be placed): Home, Self Care
[2024-08-10] MEDS: Oxytocin 15 Units/NS 250ml 15 UNITS/250 ML IV.SOLN 83 UNITS IV (18:05)
[2024-08-10] MEDS: Acetaminophen 500 MG Tablet 1000 MG PO (18:16)
[2024-08-10] MEDS: Ketorolac 30 MG/ML Syringe IV (18:16)
--- NOTE | 2024-08-10 18:27 | NURSING ---
Dr. Michel notified of BP 138/103, (repeated x3 after cuff reapplied to arm and arm propped onto pillow). Not concerned at this time as patient had narrow pulse pressure overnight. If this continues may consider obtaining manual BP.
[2024-08-10] MEDS: Loperamide 2 MG Capsule 4 MG PO (18:55)
[2024-08-11] VITALS (11 sets, daily range): BP systolic 115–134; BP diastolic 69–87; PULSE 79–99; RESP 16–22; TEMP 36.4–37.2; O2SAT 97–100
[2024-08-11] MEDS: Acetaminophen 500 MG Tablet 1000 MG PO ×4 (00:08→18:09)
[2024-08-11] MEDS: 0.9% Saline Lock 10 ML Syringe IV ×2 (00:09→06:02)
[2024-08-11] MEDS: Ketorolac 30 MG/ML Syringe IV ×3 (00:09→14:45)
[2024-08-11] MEDS: Cefazolin 1 GM/50 ML BAG IV ×2 (01:39→16:38)
[2024-08-11 06:22] LABS: Hematocrit 19.3 % (37-47); Hemoglobin 6.3 g/dL (12.0-15.0); Mean Corp Hgb Conc 32.6 g/dL (32-36); Mean Corpuscular Hgb 29.7 pg (27.0-32.0); Mean Platelet Vol. 9.7 fl (6.2-12.0); Platelet Count 173 K/mm3 (150-450); RBC Distribution Width CV 13.9 % (11.6-14.6); RBC Distribution Width SD 45.2 fl (35.1-43.9); Red Blood Count 2.12 M/mm3 (4.2-5.4); White Blood Count 20.9 K/mm3 (4.4-11.0)
--- NOTE | 2024-08-11 07:43 | PCM.PN.OB ---
Subjective Subjective patient evaluated due to significant drop in hemoglobin since last night. vitals signs stable, initially had some dizziness but since last night she has been ambulating to the bathroom without difficulty. she initially had atony around delivery but responded well to uterotonics. she has been asympomatic overnight , vitals stable. some right shoulder pain. Objective Data Objective Data Vital Signs: Vital Signs Temp Pulse Resp BP Pulse Ox O2 Del Method 99.0 F 99 22 H 126/77 H 97 Room Air 08/11/24 07:26 08/11/24 07:26 08/11/24 07:26 08/11/24 07:26 08/11/24 04:54 08/11/24 07:26 Oxygen Delivery Method Room Air Weight: 173 lb 8.061 oz Body Mass Index (BMI) 29.7 Intake & Output: Intake and Output for Last 24 Hours 08/09/24 08/10/24 08/11/24 23:59 23:59 23:59 Intake Total 1000 / 1000 2764.17 / 2764.17 50 / 50 Output Total 1200 / 1200 300 / 300 Balance 1000 / 1000 1564.17 / 1564.17 -250 / -250 Lab / Micro Data 08/11/24 06:10 08/10/24 08:03 Labs: Laboratory Results - last 24 hr 08/10/24 08:03: WBC 12.3 H, RBC 3.49 L, Hgb 10.4 L, Hct 31.4 L, MCV 90.0, MCH 29.8, MCHC 33.1, RDW Std Deviation 44.0 H, RDW Coeff of Morris 13.6, Plt Count 267, MPV 10.6, Immature Gran % (Auto) 0.900, Neut % (Auto) 71.7 H, Lymph % (Auto) 17.0 L, [place] % (Auto) 8.1, Eos % (Auto) 1.8, Baso % (Auto) 0.5, Absolute Neuts (auto) 8.8 H, Absolute Lymphs (auto) 2.09, Nucleated RBC % 0, Sodium 137, Potassium 3.9, Chloride 106, Carbon Dioxide 17.9 L, Anion Gap 13, BUN 7, Creatinine 0.59 L, Estim Creat Clear Calc 137.67, Est GFR (MDRD) Non-Af 122, BUN/Creatinine Ratio 12.6, Glucose 76, Calcium 8.7, Total Bilirubin 0.24, AST 48 H, ALT 64 H, Alkaline Phosphatase 113 H, Total Protein 6.2, Albumin 3.3 L, Globulin 2.8, Albumin/Globulin Ratio 1.2 08/11/24 06:10: WBC 20.9 H, RBC 2.12 L, Hgb 6.3 L, Hct 19.3 L, MCV 91.0, MCH 29.7, MCHC 32.6, RDW Std Deviation 45.2 H, RDW Coeff of [place] 13.9, Plt Count 173, MPV 9.7 Physical Exam Const General Appearance: cooperative and comfortable; Negative for in distress Cardio Rate: regular rate GI soft to palpation and non-distended GI Narrative: incision intact no masses fundus firm below U Assessment & Plan (1) Anemia: (2) delivery delivered: COMMENT: LTCS SM 37 cord prolapse IOL severe GHTN elevated liver enzymes girl Isela PLAN: Plan stat ct scan ordered and 2 units blood to replace KINGA. ct shows no hematomas or active areas of bleeding. will recheck cbc and fibrinogen 2 hours post transfusion
[2024-08-11 07:46] LABS: Hematocrit 18.8 % (37-47); Hemoglobin 6.1 g/dL (12.0-15.0); Mean Corp Hgb Conc 32.4 g/dL (32-36); Mean Corpuscular Hgb 29.6 pg (27.0-32.0); Mean Corpuscular Volume 91.3 fL (81-99); Mean Platelet Vol. 9.8 fl (6.2-12.0); Platelet Count 173 K/mm3 (150-450); RBC Distribution Width CV 13.9 % (11.6-14.6); RBC Distribution Width SD 45.7 fl (35.1-43.9); Red Blood Count 2.06 M/mm3 (4.2-5.4); White Blood Count 21.4 K/mm3 (4.4-11.0)
[2024-08-11 08:01] LABS: International Normalized Ratio 1.2; Partial Thromboplast Time 28.9 Seconds (24.1-36.2); Prothrombin Time (Protime)PT. 15.9 SECONDS (11.7-14.9)
[2024-08-11 08:05] LABS: Fibrinogen 202 mg/dl (203-444)
--- NOTE | 2024-08-11 08:07 | CT_ITS ---
PROCEDURE: COMPUTED TOMOGRAPHY OF THE ABDOMEN AND PELVIS WITH CONTRAST REASON FOR EXAM: PATIENT HAD A YESTERDAY. HEMOGLOBIN DECREASED FOLLOWING SURGERY. TECHNIQUE: Contiguous axial scans of 3.75 mm slice thicknesses. Sagittal and coronal reconstruction images were obtained. One or more dose reduction techniques were used (e.g., automated exposure control, adjustment of mA and/or kv according to patient size, use of iterative reconstruction technique). IV CONTRAST: Isovue-300, 100 mL. COMPARISON: None. FINDINGS: Lung bases: Clear Liver: Normal in size and attenuation. A small area of round hypoattenuation in the left hepatic lobe measuring 0.5 cm, axial image 17. Irregular-shaped mildly enhancing area of hypoattenuation in the posterior right hepatic lobe measuring 2.2 x 1.9 cm, axial image 19. An area of hypoattenuation in the right hepatic lobe measuring 1.2 x 1.1 cm, axial image 29. Gallbladder: Unremarkable. Spleen: Unremarkable. Pancreas: Unremarkable. Adrenals: Unremarkable. Kidneys: Unremarkable. Bladder: Small air-fluid level in the urinary bladder. Reproductive Organs: Enlarged post gravid uterus, central and to the right and position. No signs of active hemorrhage. Prominent enhanced vessels in the adnexal regions. Bowel: Large amount of air in the colon and small bowel. Appendix: Normal. Lymph nodes: No suspicious lymph node enlargement. Vasculature: Major vascular structures are unremarkable. Peritoneum / Retroperitoneum: Small amount of fluid in the right subhepatic space. Abdominal wall: Numerous pockets of postoperative air is seen in the subcutaneous fat and rectus sheath bilaterally. No rectus sheath hematomas. Bones: Unremarkable. CT/Abdomen/Pelvis WITH Contrast IMPRESSION: 1. Enlarged post gravid uterus following . No signs of active hemorr vicente or hematoma. 2. Postoperative air in the anterior abdominal wall detailed above. 3. Small amount of postoperative fluid in the right subhepatic space. 4. Areas of hepatic hypoattenuation in the left and right hepatic lobes most l ikely hemangiomas and/or cyst 5. Small amount of free air in the urinary bladder most likely iatrogenic. 6. Postoperative ileus. Reading Location: [place] [id number]
[2024-08-11 08:17] LABS: ALB/GLOB Ratio 1.4 RATIO (0.9-2.4); AST(SGOT) 70 U/L (<=31); Alanine Aminotransfer ALT/SGPT 54 U/L (<=34); Albumin, Serum 2.8 g/dL (3.5-5.0); Alkaline Phosphatase 77 U/L (35-104); Anion Gap 13 (5-15); BUN 10 mg/dL (4-19); BUN/Creat Ratio 12.8 RATIO (10-20); Calcium,Total 7.6 mg/dL (7.6-11.0); Carbon Dioxide 17.3 mmol/L (21.0-32.0); Chloride 102 mmol/L (98-108); Creatinine, Serum 0.75 mg/dL (0.70-1.20); EST Glomerular Filtration Rate 109 (>60); Glucose 100 mg/dL (70-99); Potassium 4.1 mmol/L (3.3-5.1); Protein, Total 4.8 g/dL (5.9-8.4); Sodium Level 132 mmol/L (133-145); Total Bilirubin 0.18 mg/dL (0.00-1.30)
[2024-08-11] MEDS: Carboprost Tromethamine 250 MCG/ML Ampul IM (10:55)
[2024-08-11] MEDS: Senna/Docusate Sodium 1 Tablet PO (11:42)
--- NOTE | 2024-08-11 11:53 | NURSING ---
At 1030 pt assisted up to BR and passed a very large clot. Rachel notified.
[2024-08-11 19:08] LABS: Absolute Lymphocyte Count 2.46 X10^3/uL (0.83-4.51); Absolute Neutrophil Count 14.7 X10^3/uL (2.0-7.7); Basophil# 0.05 X10^3/uL; Basophil% 0.3 % (0-1); Eosinophil# 0.08 X10^3/uL; Eosinophils% 0.4 % (0-5); Hematocrit 23.9 % (37-47); Hemoglobin 7.9 g/dL (12.0-15.0); Lymphocyte # 2.46 X10^3/ul (0.83-4.51); Mean Corp Hgb Conc 33.1 g/dL (32-36); Mean Corpuscular Hgb 28.9 pg (27.0-32.0); Mean Corpuscular Volume 87.5 fL (81-99); Mean Platelet Vol. 10.4 fl (6.2-12.0); Monocyte# 1.41 X10^3/uL; Monocyte% 7.5 % (0-10); NRBC Flagged by Analyzer 0 % (0-5); Neutrophil # 14.67 X10^3/uL (2.7-7.7); Neutrophil % 77.8 % (47-70); Platelet Count 165 K/mm3 (150-450); RBC Distribution Width CV 15.7 % (11.6-14.6); RBC Distribution Width SD 49.4 fl (35.1-43.9); Red Blood Count 2.73 M/mm3 (4.2-5.4); White Blood Count 18.9 K/mm3 (4.4-11.0)
[2024-08-11 19:30] LABS: Fibrinogen 329 mg/dl (203-444)
[2024-08-11] MEDS: Naproxen 500 MG Tablet PO (20:52)
[2024-08-12] MEDS: Acetaminophen 500 MG Tablet 1000 MG PO ×4 (00:12→18:35)
[2024-08-12 00:50] VITALS: BP 125/77; PULSE 97; RESP 16; TEMP 37; O2SAT 99
[2024-08-12 04:13] VITALS: BP 113/77; PULSE 88; RESP 16; TEMP 36.6; O2SAT 99
[2024-08-12] MEDS: Naproxen 500 MG Tablet PO ×3 (04:42→17:50)
[2024-08-12 06:47] LABS: Absolute Lymphocyte Count 2.54 X10^3/uL (0.83-4.51); Absolute Neutrophil Count 10.5 X10^3/uL (2.0-7.7); Basophil# 0.03 X10^3/uL; Basophil% 0.2 % (0-1); Eosinophils% 0.7 % (0-5); Hematocrit 22.3 % (37-47); Hemoglobin 7.3 g/dL (12.0-15.0); Lymphocyte # 2.54 X10^3/ul (0.83-4.51); Lymphocyte % 17.7 % (19-41); Mean Corp Hgb Conc 32.7 g/dL (32-36); Mean Corpuscular Volume 88.5 fL (81-99); Mean Platelet Vol. 10.8 fl (6.2-12.0); Monocyte# 0.95 X10^3/uL; Monocyte% 6.6 % (0-10); NRBC Flagged by Analyzer 0 % (0-5); Neutrophil % 73.4 % (47-70); Platelet Count 147 K/mm3 (150-450); RBC Distribution Width CV 16.6 % (11.6-14.6); RBC Distribution Width SD 52.5 fl (35.1-43.9); Red Blood Count 2.52 M/mm3 (4.2-5.4); White Blood Count 14.3 K/mm3 (4.4-11.0)
[2024-08-12 08:03] LABS: ALB/GLOB Ratio 1.3 RATIO (0.9-2.4); AST(SGOT) 59 U/L (<=31); Alanine Aminotransfer ALT/SGPT 40 U/L (<=34); Albumin, Serum 2.9 g/dL (3.5-5.0); Alkaline Phosphatase 78 U/L (35-104); Anion Gap 11 (5-15); BUN 13 mg/dL (4-19); BUN/Creat Ratio 18.5 RATIO (10-20); Calcium,Total 7.8 mg/dL (7.6-11.0); Carbon Dioxide 18.1 mmol/L (21.0-32.0); Chloride 110 mmol/L (98-108); Creatinine, Serum 0.68 mg/dL (0.70-1.20); EST Glomerular Filtration Rate 118 (>60); Estimated Creatinine Clearance 119.45 ml/min (50-250); Globulin 2.2 g/dL (2.2-4.2); Glucose 89 mg/dL (70-99); Protein, Total 5.1 g/dL (5.9-8.4); Sodium Level 140 mmol/L (133-145); Total Bilirubin 0.16 mg/dL (0.00-1.30)
[2024-08-12 08:30] VITALS: BP 118/79; PULSE 74; RESP 16; TEMP 36.6; O2SAT 98
--- NOTE | 2024-08-12 09:03 | PN.OBGYN_ITS ---
Subjective Subjective Patient doing well without complaints. Tolerating PO. Ambulating and voiding without difficulty. Feeding well. Denies chest pain, shortness of breath, calf pain/swelling, fevers, chills, lightheadedness. Objective Data Objective Data Vital Signs: Vital Signs Temp Pulse Resp BP Pulse Ox O2 Del Method 98 F 88 16 113/77 99 Room Air 08/12/24 04:13 08/12/24 04:13 08/12/24 04:13 08/12/24 04:13 08/12/24 04:13 08/12/24 04:13 Oxygen Delivery Method Room Air Weight: 173 lb 8.061 oz Body Mass Index (BMI) 29.7 Intake & Output: Intake and Output for Last 24 Hours 08/10/24 08/11/24 08/12/24 23:59 23:59 23:59 Intake Total 2764.17 / 2764.17 100 / 100 Output Total 1450 / 1450 3100 / 3100 Balance 1314.17 / 1314.17 -3000 / -3000 Lab / Micro Data 08/12/24 06:06 08/12/24 06:06 Labs: Laboratory Results - last 24 hr 08/09/24 13:25: Crossmatch See Detail 08/11/24 18:50: WBC 18.9 H, RBC 2.73 L, Hgb 7.9 L, Hct 23.9 L, MCV 87.5, MCH 28.9, MCHC 33.1, RDW Std Deviation 49.4 H, RDW Coeff of Morris 15.7 H, Plt Count 165, MPV 10.4, Immature Gran % (Auto) 1.000 H, Neut % (Auto) 77.8 H, Lymph % (Auto) 13.0 L, [place] % (Auto) 7.5, Eos % (Auto) 0.4, Baso % (Auto) 0.3, Absolute Neuts (auto) 14.7 H, Absolute Lymphs (auto) 2.46, Nucleated RBC % 0, Fibrinogen 329 08/12/24 06:06: WBC 14.3 H, RBC 2.52 L, Hgb 7.3 L, Hct 22.3 L, MCV 88.5, MCH 29.0, MCHC 32.7, RDW Std Deviation 52.5 H, RDW Coeff of [place] 16.6 H, Plt Count 147 L, MPV 10.8, Immature Gran % (Auto) 1.400 H, Neut % (Auto) 73.4 H, Lymph % (Auto) 17.7 L, [place] % (Auto) 6.6, Eos % (Auto) 0.7, Baso % (Auto) 0.2, Absolute Neuts (auto) 10.5 H, Absolute Lymphs (auto) 2.54, Nucleated RBC % 0, Sodium 140, Potassium 4.0, Chloride 110 H, Carbon Dioxide 18.1 L, Anion Gap 11, BUN 13, C reatinine 0.68 L, Estim Creat Clear Calc 119.45, Est GFR (MDRD) Non-Af 118, BUN/Creatinine Ratio 18.5, Glucose 89, Calcium 7.8, Total Bilirubin 0.16, AST 59 H, ALT 40 H, Alkaline Phosphatase 78, Total Protein 5.1 L, Albumin 2.9 L, Globulin 2.2, Albumin/Globulin Ratio 1.3 Radiography Diagnostic Testing: Radiology Impression Abdomen/Pelvis CT 08/11/24 08:07 IMPRESSION: 1. Enlarged post gravid uterus following . No signs of active hemorrhage or hematoma. 2. Postoperative air in the anterior abdominal wall detailed above. 3. Small amount of postoperative fluid in the right subhepatic space. 4. Areas of hepatic hypoattenuation in the left and right hepatic lobes most likely hemangiomas and/or cyst 5. Small amount of free air in the urinary bladder most likely iatrogenic. 6. Postoperative ileus. Reading Location: [address] Constitutional Constitutional: Reports systems reviewed and no addt'l complaints, except as documented; Denies anorexia or headache(s) Cardiovascular Cardiovascular: Reports systems reviewed and no addt'l complaints, except as documented; Denies dizziness, dyspnea, nausea or tachypnea Respiratory/Chest Respiratory/Chest: Reports systems reviewed and no addt'l complaints, except as documented; Denies cough, dyspnea, shortness of breath at rest or tachypnea Gastrointestinal Gastrointestinal: Reports systems reviewed and no addt'l complaints, except as documented; Denies abdominal pain, constipation or nausea Genitourinary Genitourinary: Reports systems reviewed and no addt'l complaints, except as documented; Denies burning urination, difficulty urinating, dysuria, urinary frequency or urinary incontinence Musculoskeletal Musculoskeletal: Reports systems reviewed and no addt'l complaints, except as documented Integumentary Integumentary: Reports systems reviewed and no addt'l complaints, except as documented Neurologic Neurologic: Reports systems reviewed and no addt'l complaints, except as documented; Denies abnormal speech, dizziness or headache(s) Psychiatric Psychiatric: Reports systems reviewed and no addt'l complaints, except as documented Endocrine Endocrinology: Reports systems reviewed and no addt'l complaints, except as documented Hematologic/Lymphatic Hematologic/Lymphatic: Reports systems reviewed and no addt'l complaints, except as documented Physical Exam Const alert, oriented x3 and no apparent distress Neck full ROM Resp normal respiratory effort, normal air movement and no retractions Effort and Inspection: able to speak in complete sentences and symmetric chest movement GI soft to palpation Inspection: incision healing well Bladder / Kidney Exam: bladder normal to palpation Uterus Palpation: uterus fundus firm Extremity normal to inspection and full ROM Psych mental status grossly normal, thought process normal and cooperative Assessment & Plan (1) Anemia: (2) delivery delivered: COMMENT: LTCS SM 37 cord prolapse IOL severe GHTN elevated liver enzymes girl Isela PLAN: s/p LTCS PPD # 2 1. routine post care 2. breast feeding- support given 3. rh positive 4. rubella immune 5. Discharge home (3) Umbilical cord prolapse in labor and delivery: (4) Gestational HTN: COMMENT: no proteinuria but elevated liver enzymes noted (5) Chlamydia infection affecting : COMMENT: retest at 2nd visit (negative) and at 36 weeks (6) Supervision of high-risk : COMMENT: PRR,, WILY 08/30/24 girl : Lion (7) : QUALIFIERS: Weeks of gestation: 36 weeks Qualified Code(s): Z 3A.36 - 36 weeks gestation of COMMENT: GBS NEG. Discussed genetic/carrier testing. low risk NIPT, afp and carrier screen declined. normal growth, consistent WILY and normal CL Charges/Coding Multi Select Codes Urinary/Genital Urinary/Genital CPT Codes: No Charge
--- NOTE | 2024-08-12 09:05 | DS.PCM_ITS ---
Providers Date of Admission: 08/09/24 Date of Discharge: 08/12/24 Primary Care Physician: No Primary Care Phys Reason For Visit: PRIMARY Diagnosis Discharge Diagnosis (1) Anemia: Status: Acute Code(s): D64.9 - Anemia, unspecified (2) delivery delivered: Status: Acute Code(s): O82 - Encounter for delivery without indication Plan: s/p LTCS PPD # 2 1. routine post care 2. breast feeding- support given 3. rh positive 4. rubella immune 5. Discharge home (3) Umbilical cord prolapse in labor and delivery: Status: Acute Code(s): O69.0XX0 - Labor and delivery complicated by prolapse of cord, not applicable or unspecified (4) Gestational HTN: Status: Acute Code(s): O13.9 - Gestational [-induced] hypertension without significant proteinuria, unspecified trimester (5) Chlamydia infection affecting : Status: Acute Code(s): O98.819 - Other maternal infectious and parasitic diseases complicating , unspecified trimester; A74.9 - Chlamydial infection, unspecified (6) Supervision of high-risk : Status: Acute Code(s): O09.90 - Supervision of high risk , unspecified, unspecified trimester (7) : Status: Acute Code(s): Z34.90 - Encounter for supervision of normal , unspecified, unspecified trimester Qualifiers: Weeks of gestation: 36 weeks Qualified Code(s): Z3A.36 - 36 weeks gestation of Medications at Discharge Home Medications vit no.95-ferrous fumarate 28 mg-folic acid 800 mcg tablet () 1 tab PO DAILY 08/09/24 naproxen 500 mg tablet 500 mg PO BID PRN PRN Pain #30 tabs 08/10/24 oxycodone-acetaminophen 5 mg-325 mg tablet (Percocet) 1 tab PO Q4H PRN pain 7 days #20 tabs 08/10/24 Hospital Course Operations section Procedures None Summary of Care Provided Minutes Spent on Discharge: 30 Physical Exam Const alert, oriented x3 and no apparent distress Neck full ROM Resp normal respiratory effort, normal air movement and no retractions Effort and Inspection: able to speak in complete sentences and symmetric chest movement GI soft to palpation Inspection: incision intact Bladder / Kidney Exam: bladder normal to palpation Uterus Palpation: uterus fundus Extremity normal to inspection and full ROM Psych mental status grossly normal, thought process normal and cooperative Weight / BMI Weight Weight: 173 lb 8.061 oz Body Mass Index (BMI) 29.7 ABG / Lab / Microbiology Data 08/12/24 06:06 08/12/24 06:06 Laboratory: Laboratory Results - last 24 hr 08/09/24 13:25: Crossmatch See Detail 08/11/24 18:50: WBC 18.9 H, RBC 2.73 L, Hgb 7.9 L, Hct 23.9 L, MCV 87.5, MCH 28.9, MCHC 33.1, RDW Std Deviation 49.4 H, RDW Coeff of Morris 15.7 H, Plt Count 165, MPV 10.4, Immature Gran % (Auto) 1.000 H, Neut % (Auto) 77.8 H, Lymph % (Auto) 13.0 L, [place] % (Auto) 7.5, Eos % (Auto) 0.4, Baso % (Auto) 0.3, Absolute Neuts (auto) 14.7 H, Absolute Lymphs (auto) 2.46, Nucleated RBC % 0, Fibrinogen 329 08/12/24 06:06: WBC 14.3 H, RBC 2.52 L, Hgb 7.3 L, Hct 22.3 L, MCV 88.5, MCH 29.0, MCHC 32.7, RDW Std Deviation 52.5 H, RDW Coeff of [place] 16.6 H, Plt Count 147 L, MPV 10.8, Immature Gran % (Auto) 1.400 H, Neut % (Auto) 73.4 H, Lymph % (Auto) 17.7 L, [place] % (Auto) 6.6, Eos % (Auto) 0.7, Baso % (Auto) 0.2, Absolute Neuts (auto) 10.5 H, Absolute Lymphs (auto) 2.54, Nucleated RBC % 0, Sodium 140, Potassium 4.0, Chloride 110 H, Carbon Dioxide 18.1 L, Anion Gap 11, BUN 13, C reatinine 0.68 L, Estim Creat Clear Calc 119.45, Est GFR (MDRD) Non-Af 118, BUN/Creatinine Ratio 18.5, Glucose 89, Calcium 7.8, Total Bilirubin 0.16, AST 59 H, ALT 40 H, Alkaline Phosphatase 78, Total Protein 5.1 L, Albumin 2.9 L, Globulin 2.2, Albumin/Globulin Ratio 1.3 Radiography Diagnostic Testing: Radiology Impression Abdomen/Pelvis CT 08/11/24 08:07 IMPRESSION: 1. Enlarged post gravid uterus following . No signs of active hemorrhage or hematoma. 2. Postoperative air in the anterior abdominal wall detailed above. 3. Small amount of postoperative fluid in the right subhepatic space. 4. Areas of hepatic hypoattenuation in the left and right hepatic lobes most likely hemangiomas and/or cyst 5. Small amount of free air in the urinary bladder most likely iatrogenic. 6. Postoperative ileus. Reading Location: [place] [address] D/C Instructions Discharge Diet: No restrictions Discharge Activity: Return to Normal Activity and May Shower May shower in (days): 0 May resume sexual activity in: 4-6 weeks Weight Bearing Status: Full weight bearing Call your doctor if your incision/area has: Continuous Slow Oozing, Sudden Increased Bleeding, Increased Pain/ Swelling, Increased Redness and Foul Smelling Discharge Call your doctor if you observe: Fever of 101 or Higher and Using more than 1 pad per hour (for 2 hours) Suture Line Care: Avoid Pulling/Pushing and Avoid Pinching/Bending Remove Dressing in: 1 week Cleanse incision/area with: Soap & Water and Keep Dressing Clean & Dry DC O2, CPAP, BIPAP Needs Home O2 Discharge instructions: No Please Follow Up With: Tatiana Michel MD When: Call [phone] to make an appointment for an incision check in 1-2 weeks. Meaningful Use Info Meaningful Use Meaningful Use Diagnoses (Choose all that apply): None applicable Ischemic Stroke Statin Dosing Therapy Reference: STATIN DOSE THERAPY REFERENCE: * Patients > 75 years receive moderate or high dose statin therapy. * Patients 75 years or YOUNGER should receive HIGH intensity statin dose unless contraindicated. You will be required to document reason for non-treatment if statin daily dose does not meet guidelines. HIGH DOSE STATIN THERAPY DAILY Atorvastatin > than or = to 40 mg Rosuvastatin > than or = to 20 mg Amlodipine + Atorvastatin > than or = to 2.5/40 mg Ezetimibe + Simvastatin 10/80 mg Simvastatin 80mg Discharge Plan Admission Admit Date/Time: 08/09/24 19:04 Attending Provider: Tatiana Michel Primary Care Provider: Care Physician,No Primary Instructions Patient Instructions: Kick Counts, ED False Labor, OB Triage: Return to Hospital or Notify Physician if you Experience: Discharge Orders/Prescriptions Prescriptions: New oxycodone-acetaminophen [Percocet] 5-325 mg tablet 1 tab PO Q4H PRN (Reason: pain) 7 Days Qty: 20 0RF naproxen 500 mg tablet 500 mg PO BID PRN PRN (Reason: Pain) Qty: 30 1RF No Action PNV cmb#95-ferrous fumarate-FA [] 28 mg iron- 800 mcg tablet 1 tab PO DAILY Referrals / Follow Up: Care Physician,No Primary [Primary Care Provider] - Disposition Disposition (needs filled in before D/C Order can be placed): Home, Self Care Charges/Coding Multi Select Codes Urinary/Genital Urinary/Genital CPT Codes: No Charge
[2024-08-12] MEDS: Senna/Docusate Sodium 1 Tablet PO (10:02)
[2024-08-12] MEDS: 0.9% Saline Lock 10 ML Syringe IV (10:03)
[2024-08-12 14:30] VITALS: BP 128/86; PULSE 96; RESP 16; TEMP 36.4; O2SAT 100
[2024-08-12 20:25] VITALS: BP 129/79; PULSE 74; RESP 16; TEMP 36.6; O2SAT 100
[2024-08-13] MEDS: Acetaminophen 500 MG Tablet 1000 MG PO ×2 (00:31→07:37)
[2024-08-13 01:55] VITALS: BP 112/71; PULSE 86; RESP 16; TEMP 36.6; O2SAT 98
[2024-08-13] MEDS: Naproxen 500 MG Tablet PO ×2 (03:13→11:01)
--- NOTE | 2024-08-13 10:35 | CASEMGMT ---
Social Work: Mother of baby (MOB) and father of baby (FOB) provided consent to social work visit. intake worker checked in just to see how MOB and FOB were doing as discharge is scheduled for this date and nurse reported there has still been some anxiety. MOB stated there are some things she's still anxious about due to the traumatic and is still in some shock but is beginning to feel better and has a support system and a plan for when they go home. intake worker encouraged MOB and FOB to utilize their supports. MOB were both very engaged and appeared to be very supportive of one another. Baby was in crib sleeping while MOB was getting dressed and the FOB was getting everything together and all packed up. MOB and FOB denied any other concerns/needs at this time. Inessa Camp, [employer], PRODUCT SAFETY ADMINISTRATOR
--- NOTE | 2024-08-13 10:46 | PN.OBGYN_ITS ---
Subjective Subjective Patient doing well without complaints. Tolerating PO. Ambulating and voiding without difficulty. Feeding well. Denies chest pain, shortness of breath, calf pain/swelling, fevers, chills, lightheadedness. Objective Data Objective Data Vital Signs: Vital Signs Temp Pulse Resp BP Pulse Ox O2 Del Method 97.8 F 86 16 112/71 98 Room Air 08/13/24 01:55 08/13/24 01:55 08/13/24 01:55 08/13/24 01:55 08/13/24 01:55 08/13/24 01:55 Oxygen Delivery Method Room Air Weight: 173 lb 8.061 oz Body Mass Index (BMI) 29.7 Intake & Output: Intake and Output for Last 24 Hours 08/11/24 08/12/24 08/14/24 23:59 23:59 00:59 Intake Total 100 / 100 Output Total 3100 / 3100 Balance -3000 / -3000 Lab / Micro Data Attestation: I reviewed the patient's lab results. 08/12/24 06:06 08/12/24 06:06 Labs: Laboratory Results - last 24 hr 08/09/24 13:25: Crossmatch See Detail ROS Constitutional Constitutional: Reports systems reviewed and no addt'l complaints, except as documented; Denies anorexia or headache(s) Cardiovascular Cardiovascular: Reports systems reviewed and no addt'l complaints, except as documented; Denies dizziness, dyspnea, nausea or tachypnea Respiratory/Chest Respiratory/Chest: Reports systems reviewed and no addt'l complaints, except as documented; Denies cough, dyspnea, shortness of breath at rest or tachypnea Gastrointestinal Gastrointestinal: Reports systems reviewed and no addt'l complaints, except as documented; Denies abdominal pain, constipation or nausea Genitourinary Genitourinary: Reports systems reviewed and no addt'l complaints, except as documented; Denies burning urination, difficulty urinating, dysuria, urinary frequency or urinary incontinence Musculoskeletal Musculoskeletal: Reports systems reviewed and no addt'l complaints, except as documented Integumentary Integumentary: Reports systems reviewed and no addt'l complaints, except as documented Neurologic Neurologic: Reports systems reviewed and no addt'l complaints, except as documented; Denies abnormal speech, dizziness or headache(s) Psychiatric Psychiatric: Reports systems reviewed and no addt'l complaints, except as documented Endocrine Endocrinology: Reports systems reviewed and no addt'l complaints, except as documented Hematologic/Lymphatic Hematologic/Lymphatic: Reports systems reviewed and no addt'l complaints, except as documented Physical Exam Const alert, oriented x3 and no apparent distress Neck full ROM Resp normal respiratory effort, normal air movement and no retractions Effort and Inspection: able to speak in complete sentences and symmetric chest movement GI soft to palpation Inspection: incision healing well Bladder / Kidney Exam: bladder normal to palpation Uterus Palpation: uterus fundus firm Extremity normal to inspection and full ROM Psych mental status grossly normal, thought process normal and cooperative Assessment & Plan (1) Anemia: (2) delivery delivered: COMMENT: LTCS SM 37 cord prolapse IOL severe GHTN elevated liver enzymes girl Isela PLAN: s/p LTCS PPD # 3 1. routine post care 2. breast feeding- support given 3. rh positive 4. rubella immune 5. Discharge home (3) Umbilical cord prolapse in labor and delivery: (4) Gestational HTN: COMMENT: no proteinuria but elevated liver enzymes noted (5) Chlamydia infection affecting : COMMENT: retest at 2nd visit (negative) and at 36 weeks (6) Supervision of high-risk : COMMENT: PRR,, WILY 08/30/24 girl : Lion (7) : QUALIFIERS: Weeks of gestation: 36 weeks Qualified Code(s): Z 3A.36 - 36 weeks gestation of COMMENT: GBS NEG. Discussed genetic/carrier testing. low risk NIPT, afp and carrier screen declined. normal growth, consistent WILY and normal CL Charges/Coding Multi Select Codes Urinary/Genital Urinary/Genital CPT Codes: No Charge
--- NOTE | 2024-08-13 10:48 | PCM.DC.SUM ---
Providers Date of Admission: 08/09/24 Date of Discharge: 08/13/24 Primary Care Physician: No Primary Care Phys Reason For Visit: PRIMARY Diagnosis Discharge Diagnosis (1) Anemia: Status: Acute Code(s): D64.9 - Anemia, unspecified (2) delivery delivered: Status: Acute Code(s): O82 - Encounter for delivery without indication Plan: s/p LTCS PPD # 2 1. routine post care 2. breast feeding- support given 3. rh positive 4. rubella immune 5. Discharge home (3) Umbilical cord prolapse in labor and delivery: Status: Acute Code(s): O69.0XX0 - Labor and delivery complicated by prolapse of cord, not applicable or unspecified (4) Gestational HTN: Status: Acute Code(s): O13.9 - Gestational [-induced] hypertension without significant proteinuria, unspecified trimester (5) Chlamydia infection affecting : Status: Acute Code(s): O98.819 - Other maternal infectious and parasitic diseases complicating , unspecified trimester; A74.9 - Chlamydial infection, unspecified (6) Supervision of high-risk : Status: Acute Code(s): O09.90 - Supervision of high risk , unspecified, unspecified trimester (7) : Status: Acute Code(s): Z34.90 - Encounter for supervision of normal , unspecified, unspecified trimester Qualifiers: Weeks of gestation: 36 weeks Qualified Code(s): Z3A.36 - 36 weeks gestation of Medications at Discharge Home Medications vit no.95-ferrous fumarate 28 mg-folic acid 800 mcg tablet () 1 tab PO DAILY 08/09/24 naproxen 500 mg tablet 500 mg PO BID PRN PRN Pain #30 tabs 08/10/24 oxycodone-acetaminophen 5 mg-325 mg tablet (Percocet) 1 tab PO Q4H PRN pain 7 days #20 tabs 08/10/24 Hospital Course Operations section Procedures None Summary of Care Provided Minutes Spent on Discharge: 30 Physical Exam Const alert, oriented x3 and no apparent distress Neck full ROM Resp normal respiratory effort, normal air movement and no retractions Effort and Inspection: able to speak in complete sentences and symmetric chest movement GI soft to palpation Inspection: incision intact Bladder / Kidney Exam: bladder normal to palpation Uterus Palpation: uterus fundus Extremity normal to inspection and full ROM Psych mental status grossly normal, thought process normal and cooperative Weight / BMI Weight Weight: 173 lb 8.061 oz Body Mass Index (BMI) 29.7 ABG / Lab / Microbiology Data 08/12/24 06:06 08/12/24 06:06 Laboratory: Laboratory Results - last 24 hr 08/09/24 13:25: Crossmatch See Detail D/C Instructions Discharge Diet: No restrictions May shower in (days): 0 May resume sexual activity in: 4-6 weeks Weight Bearing Status: Full weight bearing Call your doctor if your incision/area has: Continuous Slow Oozing, Sudden Increased Bleeding, Increased Pain/ Swelling, Increased Redness and Foul Smelling Discharge Call your doctor if you observe: Fever of 101 or Higher and Using more than 1 pad per hour (for 2 hours) Suture Line Care: Avoid Pulling/Pushing and Avoid Pinching/Bending Cleanse incision/area with: Soap & Water and Keep Dressing Clean & Dry DC O2, CPAP, BIPAP Needs Home O2 Discharge instructions: No Please Follow Up With: Tatiana Michel MD When: Call [phone] to make an appointment for an incision check in 1-2 weeks. Meaningful Use Info Meaningful Use Meaningful Use Diagnoses (Choose all that apply): None applicable Ischemic Stroke Statin Dosing Therapy Reference: STATIN DOSE THERAPY REFERENCE: * Patients > 75 years receive moderate or high dose statin therapy. * Patients 75 years or YOUNGER should receive HIGH intensity statin dose unless contraindicated. You will be required to document reason for non-treatment if statin daily dose does not meet guidelines. HIGH DOSE STATIN THERAPY DAILY Atorvastatin > than or = to 40 mg Rosuvastatin > than or = to 20 mg Amlodipine + Atorvastatin > than or = to 2.5/40 mg Ezetimibe + Simvastatin 10/80 mg Simvastatin 80mg Discharge Plan Admission Admit Date/Time: 08/09/24 19:04 Attending Provider: Tatiana Michel Primary Care Provider: Care Physician,No Primary Instructions Patient Instructions: Kick Counts, ED False Labor, OB Triage: Return to Hospital or Notify Physician if you Experience: Discharge Orders/Prescriptions Prescriptions: New oxycodone-acetaminophen [Percocet] 5-325 mg tablet 1 tab PO Q4H PRN (Reason: pain) 7 Days Qty: 20 0RF naproxen 500 mg tablet 500 mg PO BID PRN PRN (Reason: Pain) Qty: 30 1RF No Action PNV cmb#95-ferrous fumarate-FA [] 28 mg iron- 800 mcg tablet 1 tab PO DAILY Referrals / Follow Up: Care Physician,No Primary [Primary Care Provider] - Disposition Disposition (needs filled in before D/C Order can be placed): Home, Self Care Charges/Coding Multi Select Codes Urinary/Genital Urinary/Genital CPT Codes: No Charge
[2024-08-13 11:00] VITALS: BP 147/81; PULSE 86; RESP 16; TEMP 36.6; O2SAT 99
[2024-08-13] MEDS: Senna/Docusate Sodium 1 Tablet PO (11:01)
[2024-08-13 11:18] VITALS: BP 137/86
--- NOTE | 2024-08-14 14:16 | CASEMGMT ---
Social Work Assessment Labor and Delivery Unit Patient Address: [address] [place] [address] Phone number: [phone] Date of Referral: 08/11/24 Time of Referral:? 08 Referred By: Nona Saurez Date of Intervention: ??08/11/24 Time of Intervention:? 1300 Reason for Referral:? mental health/ difficult delivery Sw completed chart review and acknowledges social work consult. Sw presented to bedside along with nursery manager, Lorena Bermudez. Sw introduced self and explained sw role to mother of baby (MOB- Kiesha) and father of baby (FOB- Lion). Sw completed psychosocial assessment, utilized active listening and provided ongoing support. History obtained from: medical records, MOB and FOB. Household composition: Currently residing in the home is MOB and FOB. [place] baby to be included in residence when ready for discharge. Parents report that they are living in a condo right now, but have purchased a new home that is not ready for them to move into yet. Patient's parent/guardian status:? ?MOB and FOB state that they met when set up on a blind date and have been together since 2015. Parents got in 2021. No concerns reported of domestic violence or intimate partner violence. Baby is first baby for both parents. Medical History: ?JETT is 34 year old female who is 1, para 0- now 1 following labor and delivery of . JETT received routine care during with [place]. JETT presented to hospital for a scheduled version- which was successful. JETT then had an induction of labor, after her membranes were broke, it was noted that baby had two decels, and when checked baby had a prolapsed cord. JETT was then rushed to an emergency under general anesthesia. This was very traumatic for both parents, and much support provided following to help them process their delivery. Baby girl, named Isela Bañuelos, was born weighing 5lb 1oz with apgars of 8 and 9 at one and five minutes of life, respectfully. JETT states that she is breast feeding and baby will be followed by Dr. Sheikh for pediatrics. Educational Status:? Both parents graduated from high school and have college degrees. No issues with reading, learning or comprehension. Financial Status: Both parents are gainfully employed. 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 Supplies: All necessary baby supplies obtained, including: car seat, safe sleep space, clothes, diapers and wipes. Childcare/Caregiver(s):? MOB states that she will be the primary caregiver to baby along with FOB when he is not at work. Transportation:?? Both parents have their drivers license and reliable means of transportation. No barriers. Programs/Agencies Involved: ???Parents are not connected to any community resources that assist them financially Children Services/Legal Issues:??? No prior involvement with children services. No issues or concerns warranting referral to be made at this time. Behavioral Health Issues: ??Mental Health History:?Both parents deny mental health history or diagnoses. ?? Substance Use History: Parents deny substance use prior to and during . Family History:?Parents deny family history of substance use or significant mental health diagnoses. ? Drug Screens: No drug screens observed during chart review. Family/Social Stressors:? Parents state that their biggest stressor and concerns at this time revolved around the traumatic delivery of their daughter. Parents state that they are still processing the traumatic delivery and are appreciative of the help, answers and support they have been provided. FOB tearful throughout conversation and attentive to MOB. Support Systems: MOB states that FOB and their family's are her biggest supports Depression/Shaken Baby/Safe Sleeping: Sw educated parents on signs and symptoms of baby blues and depression and anxiety. Sw educated parents on how their delivery trauma may impact their journey, as well as future pregnancies/ deliveries that they experience. Parents express understanding. Sw also explained to FOB that it would be normal for him to also experience some mental health symptoms during this period. FOB states that he is still struggling to process their experience, and was tearful at times throughout conversation. MOB states that at this time she is doing better, is happy and thankful that baby is here and is healthy. Sw educated parents on shaken baby prevention and ABCs of safe sleep. Parents express understanding. ASSESSMENT:? MOB and baby admitted following labor and delivery of . MOB experienced traumatic delivery, and she and FOB continue to process that as well as navigate life as being new to parenthood. FOB observed to be attentive to MOB and baby. MOB observed laying in bed comfortably and feeding baby initially. MOB and FOB both interactive and tearful appropriately during conversation. Parents recognize that they may struggle with their mental health during this period due to the traumatic experience they had during delivery. Parents have obtained all necessary baby supplies and have natural supports in place. Parents state that they will be supportive to one another and also have family and friends to help as well. MOB acknowledges importance to seek mental health guidance and support when warranted. PLAN:?? No other services requested or indicated. MOB and baby to be discharged when medically ready. Parents were provided literature regarding: signs and symptoms of baby blues and mood and anxiety disorders, Help Me Grow, shaken baby prevention, ABCs of safe sleep and a list of county resources that are available for them should any needs present themselves. Marisa Fenton, HEALTH INSPECTOR, [employer]PERVISOR [employer]SEMBL[employer]
== END 2024-08-13 12:45 | disposition home or self-care (01) | DRG 786 ==
LOC: WPOUT 19:30 → WP 19:34
PROVIDERS: Admitting Provider Obstetrics & Gynecology; Referring Provider Registered Nurse; Visit Provider Obstetrics & Gynecology
DX: O69.0XX0 Labor and delivery complicated by prolapse of cord, not applicable or unspecified (principal); O60.14X0 Preterm labor third trimester with preterm delivery third trimester, not applicable or unspecified; D62 Acute posthemorrhagic anemia; O98.32 Other infections with a predominantly sexual mode of transmission complicating childbirth; O72.1 Other immediate postpartum hemorrhage; A74.9 Chlamydial infection, unspecified; O13.4 Gestational [pregnancy-induced] hypertension without significant proteinuria, complicating childbirth; Z37.0 Single live birth; Z3A.36 36 weeks gestation of pregnancy; O32.1XX0 Maternal care for breech presentation, not applicable or unspecified; O90.81 Anemia of the puerperium
CPT/HCPCS: 36415; 59025; 59050; 59412; 74177; 76815; 76819; 80053; 82565; 82570; 84156; 84450; 84460; 84550; 85025; 85027; 85384; 85610; 85730; 86780; 86850; 86900; 86901; P9016; Q9967; A4216; J2405

== ENCOUNTER 2024-08-17 11:30 | Outpatient (CLI) | payer OTHER, SELFPAY ==
[2024-08-17] VITALS (8 sets, daily range): BP systolic 156–166; BP diastolic 86–91; PULSE 80–90; RESP 16; TEMP 37.1; O2SAT 89–92; BMI 27.6
[2024-08-17 12:04] LABS: Hematocrit 27.2 % (37-47); Hemoglobin 8.6 g/dL (12.0-15.0); Mean Corp Hgb Conc 31.6 g/dL (32-36); Mean Corpuscular Hgb 28.5 pg (27.0-32.0); Mean Corpuscular Volume 90.1 fL (81-99); Mean Platelet Vol. 9.8 fl (6.2-12.0); Platelet Count 374 K/mm3 (150-450); RBC Distribution Width CV 15.7 % (11.6-14.6); RBC Distribution Width SD 50.9 fl (35.1-43.9); Red Blood Count 3.02 M/mm3 (4.2-5.4); White Blood Count 8.6 K/mm3 (4.4-11.0)
[2024-08-17 13:01] LABS: AST(SGOT) 51 U/L (<=31); Alanine Aminotransfer ALT/SGPT 77 U/L (<=34); Creatinine, Serum 0.59 mg/dL (0.70-1.20); EST Glomerular Filtration Rate 122 (>60); Estimated Creatinine Clearance 132.87 ml/min (50-250); Uric Acid 5.4 mg/dL (2.6-6.0)
--- NOTE | 2024-08-17 13:19 | OB.TRI.NOTE ---
HPI - General HPI Narrative STEFANIA SANTIAGO, is a 34 F who presents to L&D for a post pre-e work up. Her AST was found to be lower but her ALT slightly higher than after discharge. She is 6 days . She was in the office with some mildly elevated blood pressures. They are still in the 150's/80's-90's. She denies headaches or visual changes, no epigastric pain. The nurses state that she is extremely nervous during the exam. [facility] Medical History (Updated 08/17/24 @ 13:[address] Inessa Lujan, DO) Chlamydia infection affecting Gestational HTN Positive home test Amenorrhea Spotting in early Home Medications ?Medication ?Instructions ?Recorded ?Last Taken ?Type vit no.95-ferrous 1 tab PO DAILY 08/09/24 08/11/24 10:00 History fumarate 28 mg-folic acid 800 mcg 1 TAB tablet () naproxen 500 mg tablet 500 mg PO BID PRN PRN Pain #30 tabs 08/10/24 08/16/24 19:30 Rx 500 mg sennosides 8.6 mg tablet (Senna 8.6 mg PO DAILY 08/17/24 08/17/24 10:00 History Laxative) 8.6 mg Allergy/AdvReac Type Severity Reaction Status Date / Time No Known Allergies Allergy Verified 08/17/24 11:51 Family History Father CVA (cerebral vascular accident) Cancer prostate Social History adopted: No (Father was adopted) household members: spouse current occupational status: employed 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 [employer] current occupational exposures/hazards: No pets and animals: No history of recent travel: No sexually active: Yes Smoking Status: Never smoker alcohol intake: current alcohol intake frequency: holidays/special occasions only details: not while substance use type: does not use well-balanced diet: daily or most days caffeine: Yes eating out: 1-3 times/week during the past year weight has: remained stable what type of physical activity do you participate in: yoga frequency: 1-2 times per week duration: 15-30 minutes/day katlin/sabianist: Islam seatbelt use: always do you feel safe at home: Yes additional social history: : Zana Seymour ([employer]) - [employer] History 2 Elective abortions Hx Para 0 Spontaneous abortions 1 Hx # Term Pregnancies 1 Ectopic pregnancies Hx # Pregnancies Multiple births # of living children 1 Past Pregnancies Del. Date Name GA/Weeks Outcome Route Bth Weight Gen Labor Lgth Anesthesia Del Locatn Provider FOB 11/24/23 4 spontaneous 08/10/24 Isela 37 live - full term Female general [facility] Delivery Date: 08/10/24 Last Updated by: Pam Samuel, RN IOL HTN Ltcs cord prolapse anemia pph ROS Constitutional Constitutional: Reports systems reviewed and no addt'l complaints, except as documented Gastrointestinal Gastrointestinal: Denies bloating, constipation, cramping, diarrhea, nausea or vomiting Genitourinary Genitourinary: Reports other Details: Denies vaginal odor, vaginal bleeding, or vaginal discharge ; Denies difficulty urinating or flank pain Assessment & Plan (1) Pre-eclampsia, : PLAN: ok to observe outpatient starting labetalol 200 bid return early next week to repeat labs and blood pressure. pre-e precautions given.
[2024-08-17] MEDS: Labetalol 200 MG Tablet PO (13:23)
== END 2024-08-17 13:30 | disposition home or self-care (01) ==
LOC: WPOUT 11:33 → WP 11:34
PROVIDERS: Referring Provider Obstetrics & Gynecology; Visit Provider Obstetrics & Gynecology
DX: O14.95 Unspecified pre-eclampsia, complicating the puerperium (principal); Z3A.00 Weeks of gestation of pregnancy not specified
CPT/HCPCS: 36415; 82565; 84450; 84460; 84550; 85027; 99221; G0378